=== PATIENT | male | born 1960 | race Caucasian/White ===

== ENCOUNTER → 2017-03-31 | Outpatient (CLI) | payer MEDICARE ==
[~2017-03-31] MED LIST: OMNIPAQUE 350 MG/ML, 100ML BOTTLE ONE
== END | disposition home or self-care (01) ==
LOC: CFH 13:34
PROVIDERS: ATTEND Internal Medicine
DX: J43.2 Centrilobular emphysema (principal); R05 Cough
CPT/HCPCS: 71260; Q9967

== ENCOUNTER 2018-05-22 09:43 | Emergency (ER) | payer MEDICARE ==
[~2018-05-22] VITALS: Ht 167.6 cm; Wt 71.0 kg
[2018-05-22] MEDS ORDERED: LIDOCAINE 1%-EPI 1:100K, 20ML SQ ONE (10:00)
[2018-05-22] MEDS ORDERED: LIDOCAINE-MPF 1%, 5ML ONE (10:03)
[2018-05-22] MEDS ORDERED: PHEN50TA PO (10:09)
[2018-05-22] MEDS ORDERED: LEVE500T53 PO (10:09)
[2018-05-22] MEDS ORDERED: CITA20TA9 PO (10:09)
[2018-05-22] MEDS ORDERED: SIMV40TA3 PO (10:09)
[2018-05-22] MEDS ORDERED: BACITRACIN ZINC OINT 500U/GM, 0.9 GM ONE (11:00)
[2018-05-22 11:29] VITALS: BP 97/62
== END 2018-05-22 11:31 | disposition home or self-care (01) ==
LOC: ED 11:25
DX: S01.81XA Laceration without foreign body of other part of head, initial encounter (principal); W18.39XA Other fall on same level, initial encounter; Y93.89 Activity, other specified; Y99.8 Other external cause status; Y92.009 Unspecified place in unspecified non-institutional (private) residence as the place of occurrence of the external cause
CPT/HCPCS: 12052; 70450; 93005; 99284

== ENCOUNTER 2019-05-21 23:15 | Emergency (ER) | payer MEDICARE ==
[~2019-05-21 23:15] MED LIST changes: +CITA20TA9 PO; +LEVE500T53 PO; -OMNIPAQUE 350 MG/ML, 100ML BOTTLE ONE; +PHEN50TA PO; +SIMV40TA3 PO
[2019-05-21 23:44] LABS: BASOPHILS # (AUTO) 0.04 x10^3/uL (0-0.1); BASOPHILS % (AUTO) 0 % (0-1); EOSINOPHILS % (AUTO) 1 % (1-7); LYMPHOCYTES # (AUTO) 1.79 x10^3/uL (1-3.4); LYMPHOCYTES % (AUTO) 18 % (22-44); MD NO; MEAN CORPUSCULAR HEMOGLOBIN 32.9 pg (27.5-34.5); MEAN CORPUSCULAR HGB CONC 33.5 g/dL (33.2-36.2); MEAN CORPUSCULAR VOLUME 98.1 fL (81-97); MEAN PLATELET VOLUME 7.4 fL (7.4-10.4); MONOCYTES # (AUTO) 0.97 x10^3/uL (0.2-0.8); MONOCYTES % (AUTO) 10 % (2-9); NEUTROPHILS # (AUTO) 6.98 x10^3/uL (1.8-6.8); NEUTROPHILS % (AUTO) 71 % (42-75); PLATELET COUNT 356 x10^3/uL (130-400); RED BLOOD COUNT 4.52 x10^6/uL (4.38-5.82); RED CELL DISTRIBUTION WIDTH 14.3 % (9.4-14.8)
--- NOTE | 2019-05-21 23:47 | NUR ---
THIS 58 YOM BIB [facility] FROM [facility] S/P REPORTED SZ LASTING @ 1 MINUTE. PT REPORTS HX OF SZ, STATES DOES TAKE KEPRA SCHEDULED. UPON ARRIVAL PT ORIENTED TO NAME AND BIRTHDAY ONLY, DENIES C/O PAIN AT THIS TIME. 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 PT CALM AND COOPERATIVE AT THIS TIME.
[2019-05-21 23:54] LABS: ALBUMIN 3.7 g/dL (3.4-5.0); ANION GAP 7 mmol/L (5-15); CALCIUM 8.9 mg/dL (8.5-10.1); CHLORIDE 107 mmol/L (98-107); CREATININE 0.81 mg/dL (0.7-1.3)
[2019-05-21 23:58] LABS: TROPONIN I < 0.015 ng/mL (0.000-0.045)
--- NOTE | 2019-05-22 00:08 | NUR ---
PT RESTING QUIETLY AT THIS TIME. PT ALERT TO NAME, BIRTHDATE AND LOCATION. PT DENIES ALLERGIES, DOES NOT KNOW DAILY MEDICATIONS AT THIS TIME.
[2019-05-22 00:59] VITALS: BP 123/76
--- NOTE | 2019-05-22 01:20 | NUR ---
REVIEWED DISCHARGE INSTRUCTIONS W/ PT, VERBALIZED UNDERSTANDING TO INFORMATION PROVIDED INCLUDING HOME MEDICATIONS, FOLLOW UP CARE AND RETURN PRECAUTIONS. PT DENIED C/O PAIN. PT A&O X 3. CAB VOUCHER PROVIDED FOR PT.
== END 2019-05-22 01:33 | disposition home or self-care (01) ==
LOC: ED 05-22 01:15
DX: S09.90XA Unspecified injury of head, initial encounter (principal); G40.409 Other generalized epilepsy and epileptic syndromes, not intractable, without status epilepticus; R41.82 Altered mental status, unspecified; R00.0 Tachycardia, unspecified; X58.XXXA Exposure to other specified factors, initial encounter; Y93.89 Activity, other specified; Y92.89 Other specified places as the place of occurrence of the external cause; Y99.8 Other external cause status
CPT/HCPCS: 36415; 80048; 82040; 84484; 85025; 93005; 99284

== ENCOUNTER 2019-09-16 00:15 | Emergency (ER) | payer MEDICARE ==
[~2019-09-16] VITALS: Ht 185.4 cm; Wt 69.5 kg
[~2019-09-16 00:15] MED LIST changes: +SIMV40TA20 PO; -SIMV40TA3 PO
--- NOTE | 2019-09-16 00:36 | NUR ---
Pt presents to ed c/o taking out [id number] minutes ago and is suspect of potentially swallowing the metal piece that fell off. Denies any po intake issues, able to tolerate own secretions, and maintaining own airway well. States feels there is something stuck in throat though. Monitoring applied. Vss. Call light within reach. Awaiting md assessment.
--- NOTE | 2019-09-16 03:37 | NUR ---
EGD to be accomplished @0600. Pt updated. Pt amb to rr w/ from home walker. Monitoring applied and intact. Pt made comfortable, given remote and lights turned low.
--- NOTE | 2019-09-16 05:10 | NUR ---
Pt moved to [id number] for EGD. nohelia Chatman pt amb to rr for bathroom.
--- NOTE | 2019-09-16 05:38 | NUR ---
Pt report to Cristobal shirley.
--- NOTE | 2019-09-16 06:19 | NUR ---
SPECIAL CERTIFICATE DICTATOR HAS NOT ARRIVED HOWEVER GI DOCTOR HAS. GI DOCTOR HAS A SCHEDULED PROCEDURE AT 0700 AND STATES HE MUST WAIT UNTIL HOSPITAL ENDO TEAM ARRIVES. POC DISCUSSED WITH PT. HE DENIES CURRENT NEEDS. VSS.
--- NOTE | 2019-09-16 07:02 | NUR ---
RECEIVED REPORT FROM MATY PRETTY, PLAN OF CARE DISCUSSED. PT LAYING IN BED, URINAL GIVEN. AWAITING ENDOSCOPY TEAM. EXPLAINED PLAN OF OF CARE, PT VERBALIZED UNDERSTANDING
[2019-09-16] MEDS ORDERED: MIDAZOLAM 1 MG/ML, 5ML ONE (07:05)
[2019-09-16] MEDS ORDERED: FENTANYL PF 100 MCG/2ML ONE (07:05)
[2019-09-16] MEDS ORDERED: PROPOFOL 10 MG/ML, 20ML ONE (07:54)
--- NOTE | 2019-09-16 08:32 | NUR ---
0801 ENDOSCOPY TEAM IN ROOM, PLEASE SEE WRITTEN CHART FORM FOR NOTES. PT TOLERATED WELL
[2019-09-16 09:08] VITALS: BP 106/50
--- NOTE | 2019-09-16 09:08 | NUR ---
DISCHARGE INSTRUCTIONS GIVEN, PT VERBALIZED UNDERSTANDING, GAIT STEADY, TAXI GIVENPatient/Caregiver given discharge instructions and they have confirmed that they understand the instructions. Patient ambulatory with steady gait.
== END 2019-09-16 09:11 | disposition home or self-care (01) ==
LOC: ED 03:20
DX: T18.198A Other foreign object in esophagus causing other injury, initial encounter (principal); M47.812 Spondylosis without myelopathy or radiculopathy, cervical region; J43.2 Centrilobular emphysema; X58.XXXA Exposure to other specified factors, initial encounter; Y93.89 Activity, other specified; Y92.89 Other specified places as the place of occurrence of the external cause; Y99.8 Other external cause status
CPT/HCPCS: 43247; 70360; 70490; 71045; 93005; 99285; J2250; J3010